=== PATIENT | male | born 1980 | race Asian ===

== ENCOUNTER 2017-12-31 06:51 | Emergency (ER) | payer OTHER ==
[~2017-12-31] VITALS: Ht 190.5 cm; Wt 74.8 kg
[2017-12-31 06:43] VITALS: TEMP 99.5
[2017-12-31 07:14] LABS: PLATELET COUNT 365 K/uL (142-355)
[2017-12-31 07:21] LABS: POTASSIUM 4.4 mmol/L (3.6-5.2)
[2017-12-31 08:08] VITALS: BP 141/89
== END 2017-12-31 08:08 | disposition home or self-care (01) ==
LOC: ED 06:51
DX: R56.9 Unspecified convulsions (principal); D72.829 Elevated white blood cell count, unspecified
CPT/HCPCS: 80053; 80307; 81000; 85027; 99283

== ENCOUNTER 2018-10-17 07:32 | Emergency (ER) | payer BC ==
[~2018-10-17] VITALS: Ht 190.5 cm; Wt 74.8 kg
[2018-10-17 07:41] VITALS: TEMP 98.2
[2018-10-17 08:44] VITALS: BP 137/91
== END 2018-10-17 08:45 | disposition home or self-care (01) ==
LOC: ED 07:32
DX: M75.101 Unspecified rotator cuff tear or rupture of right shoulder, not specified as traumatic (principal)
CPT/HCPCS: 96372; 99283; J1885

== ENCOUNTER 2019-07-03 21:25 | Emergency (ER) | payer BC ==
[~2019-07-03] VITALS: Ht 190.5 cm; Wt 74.8 kg
[2019-07-03 22:50] VITALS: BP 129/74; TEMP 97.7
== END 2019-07-03 22:50 | disposition home or self-care (01) ==
LOC: ED 21:25
DX: B35.3 Tinea pedis (principal)
CPT/HCPCS: 99282

== ENCOUNTER 2022-07-20 13:27 | Outpatient (CLI) | payer BC | END 2022-07-20 21:26 | disposition home or self-care (01) | LOC: RAD 13:27 | PROVIDERS: ATTEND Nurse Practitioner Family | DX: R68.3 Clubbing of fingers (principal) ==

== ENCOUNTER 2022-08-10 12:57 | Outpatient (CLI) | payer BC | END 2022-08-10 17:00 | disposition home or self-care (01) | LOC: RESP 12:57 | PROVIDERS: ATTEND Nurse Practitioner Family | DX: R68.3 Clubbing of fingers (principal) ==

== ENCOUNTER 2023-01-16 17:12 | Emergency (ER) | payer BC ==
[~2023-01-16] VITALS: Ht 190.5 cm; Wt 74.8 kg
[2023-01-16 17:15] VITALS: BP 129/78; TEMP 98.4
== END 2023-01-16 18:59 | disposition home or self-care (01) ==
LOC: ED 17:12
DX: S76.811A Strain of other specified muscles, fascia and tendons at thigh level, right thigh, initial encounter (principal); X58.XXXA Exposure to other specified factors, initial encounter
CPT/HCPCS: 96372; 99283; J1885; J2360